=== PATIENT | male | born 1975 | race American Indian/Alaskan Native ===

== ENCOUNTER 2021-05-14 10:58 | Emergency (ER) | payer OTHER ==
[2021-05-14 11:25] VITALS: BP 116/72
--- NOTE | 2021-05-14 11:59 | Emergency Department Report ---
ED Rash HPI - HPI Chief Complaint: Skin/Abscess/Foreign Body Stated Complaint: PELVIC AEREA PROBLEMS Time Seen by Provider: 05/14/21 11:53 Duration: 1 year ago Location: Other (pubic area) Rash Symptoms: No Itching, No Facial Swelling, No Tongue/Oral Swelling, No Breathing Difficulties, No Choking Sensation, No Wheezing/Dyspnea, No Peeling, No Blistering, No Fever, No Lightheaded, No Malaise, No Myalgias Severity: mild ED Review of Systems ROS: Stated complaint: PELVIC AEREA PROBLEMS Other details as noted in HPI ED Past Medical Hx - Past Medical History Previous Medical History?: No - Surgical History Past Surgical History?: No Rash Exam - Exam General: Vital signs noted. No distress. Alert and acting appropriately. ED Course Vital Signs 05/14/21 11:09 Temperature 98.5 F Pulse Rate 89 Respiratory 18 Rate Blood Pressure 116/72 O2 Sat by Pulse 96 Oximetry Critical care attestation.: If time is entered above; I have spent that time in minutes in the direct care of this critically ill patient, excluding procedure time. ED Disposition Clinical Impression: Skin tag Disposition: 01 HOME / SELF CARE / HOMELESS Is pt being admited?: No Does the pt Need Aspirin: No Condition: Stable Instructions: Skin Tag, Adult
--- NOTE | 2021-05-14 12:01 | Emergency Department Report ---
Chief Complaint: Skin/Abscess/Foreign Body Stated Complaint: PELVIC AEREA PROBLEMS Time Seen by Provider: 05/14/21 11:53 - HPI History of Present Illness: 46 year old male presents to ED with complaints of skin take to his pubic area. He states he had similar skin about 5-6 yrs ago and saw a department sales manager group at [facility] and had it removed. He states the skin tag came back about 1 year ago and he has been trying to get back in with a department sales manager but he sta anatoliy that "they keep giving me the run around". He states that because of where is located the skin tag is irritating and he wants to have it removed. She states that is a little bit bigger than when it first showed up about a year ago and he noticed that there is a small 1 starting to form right next to it. He denies any bleeding from it he denies any significant pain or any redness or pus drainage from it. - Exam Vital Signs: Vital Signs 05/14/21 11:09 Temperature 98.5 F Pulse Rate 89 Respiratory 18 Rate Blood Pressure 116/72 O2 Sat by Pulse 96 Oximetry MSE screening note: Focused history and physical exam performed. Due to findings the following was ordered: ED Medical Decision Making - Medical Decision Making 46 year old male presents to ED with complaints of skin take to his pubic area. He states he had similar skin about 5-6 yrs ago and saw a department sales manager group at [facility] and had it removed. He states the skin tag came back about 1 year ago and he has been trying to get back in with a department sales manager but he states that "they keep giving me the run around". He states that because of where is located the skin tag is irritating and he wants to have it removed. She states that is a little bit bigger than when it first showed up about a year ago and he noticed that there is a small 1 starting to form right next to it. He denies any bleeding from it he denies any significant pain or any redness or pus drainage from it. 1223: Patient is well-appearing, not toxic and not in any acute distress. His vital signs are stable. He is neurologically intact with a normal gait. It does appear that he has a skin tag to the pubic area but at this time there is no signs of secondary infection, no active bleeding all any emergent abnormalities associated with the skin tag at this time. Informed patient that he will need to follow-up with a department sales manager, general surgeon or plastic surgeon to have it removed. I informed that I will give him a referral to a local department sales manager, as well as a general surgeon that he can follow-up with to have it done. At this time based on patient's history, physical exam and current condition he does not have a medical emergency requiring any additional testing at this time. Patient expressed understanding of instructions and agree with plan. Patient was stable at time of discharge. ED Disposition for MSE Clinical Impression: Skin tag Disposition: HOME / SELF CARE / HOMELESS Condition: Stable Instructions: Skin Tag, Adult Additional Instructions: I recommend that you follow-up with department sales manager, and or general surgeon listed on your discharge instruction for outpatient removal of his skin tag. Return to the ER if your symptoms changes or worsens in any way. Referrals: RANDI CHRISTOPHER DO [Staff Physician] - 7-10 days (General surgeon) [facility] [Other] - 3-5 Days Time of Disposition: 12:01 ED Review of Systems ROS: Stated complaint: PELVIC AEREA PROBLEMS Other details as noted in HPI Comment: All other systems reviewed and negative Skin: lesions ED Physical Exam - General General appearance: alert, in no apparent distress - Head Head exam: Present: atraumatic, normocephalic, normal inspection - Respiratory Respiratory exam: Absent: respiratory distress - Cardiovascular Cardiovascular Exam: Present: regular rate - GI/Abdominal GI/Abdominal exam: Present: soft. Absent: distended, tenderness, guarding, rebound - Neurological Exam Neurological exam: Present: alert, oriented X3, CN II-XII intact, normal gait - Skin Skin exam: Present: other (Skin tag, about the size of a nickel noted to the pubic area, without any tenderness, signs of secondary bacterial infection or bleeding.)
== END 2021-05-14 12:15 | disposition home or self-care (01) ==
LOC: ED 10:58
DX: L91.8 Other hypertrophic disorders of the skin (principal); R10.2 Pelvic and perineal pain
CPT/HCPCS: 99281